=== PATIENT | male | born 1990 | race African-American/Black ===

== ENCOUNTER 2020-07-31 18:44 | Inpatient (IN) | payer MEDICAID ==
[~2020-07-31] VITALS: Ht 182.9 cm; Wt 88.0 kg
--- NOTE | 2020-07-31 19:20 | NUR ---
PT BIBSELF C/O SOB X2 DAYS AND MILD COUGH.PT AAOX4 PT DENIES FEVER, CP, AND ABD PAIN. PT WAS 80% O2 RA. NOW ON 5L VIA NC SATURATING 97% BREATHING EVENLY, BUT MILDLY LABORED. ABLE TO SPEAK IN 4 WORD SENTENCES. LUNGS SOUND CLEAR. PT HOOKED TO THE MONITOR AND POX. WILL CONTINUE TO MONITOR
[2020-07-31] MEDS ORDERED: CEFTRIAXONE 1 G in IV D5W 50 ML IV ONE ×4 (20:00)
[2020-07-31] MEDS ORDERED: DEXAMETHASONE SOD PHOSPHATE 10 MG/ML VIAL IV ONE (20:00)
[2020-07-31 20:04] LABS: BASOPHILS % (AUTO) 0.6 % (0.0-2.0); EOSINOPHILS % (AUTO) 0.8 % (0.0-6.0); HEMATOCRIT 43 % (39-51); HEMOGLOBIN 14.4 g/dL (13.5-17.5); LYMPHOCYTES # (AUTO) 1.6 /CMM (0.8-4.8); MEAN CORPUSCULAR HGB CONC 34 g/dl (31.0-36.0); MEAN CORPUSCULAR VOLUME 87 fL (80-96); MONOCYTES # (AUTO) 0.4 /CMM (0.1-1.30); NEUTROPHILS # (AUTO) 5.8 /CMM (1.8-8.9); NEUTROPHILS % (AUTO) 73.6 % (43.0-81.0); PLATELET COUNT (AUTO) 118 /CMM (150-450); RED BLOOD CELL COUNT(AUTO) 4.96 MIL/uL (4.5-6.0); WHITE BLOOD COUNT (AUTO) 7.9 K/uL (4.3-11.0)
[2020-07-31] MEDS ORDERED: CEFTRIAXONE 1GM BAG (ER ONLY) 50 ML IV ONE (20:05)
[2020-07-31] MEDS ORDERED: DEXAMETHASONE SOD PHOSPHATE 10 MG/ML VIAL ONE (20:05)
[2020-07-31 20:14] LABS: CALCIUM, SERUM 8.7 mg/dL (8.5-10.1); CARBON DIOXIDE 26 mmol/L (21-32); CHLORIDE 100 mmol/L (98-107); CREATININE 1.6 mg/dL (0.6-1.3); GLUCOSE 178 mg/dL (74-106); POTASSIUM 3.3 mmol/L (3.5-5.1); SODIUM SERUM 136 mmol/L (136-145); UREA NITROGEN, BLOOD 12 mg/dL (7-18)
[2020-07-31 20:21] LABS: ALANINE AMINOTRANSFERASE 26 U/L (12-78); ALKALINE PHOSPHATASE 62 U/L (46-116); ASPARTATE AMINOTRANSFERASE 25 U/L (15-37); BILIRUBIN,DIRECT 0.2 mg/dL (0.0-0.2); BILIRUBIN,TOTAL 0.7 mg/dL (0.2-1.0); TOTAL PROTEIN, SERUM 7.7 g/dL (6.4-8.2)
--- NOTE | 2020-07-31 20:40 | NUR ---
URINE TAKEN TO THE LAB
[2020-07-31 20:55] LABS: CREATINE KINASE, TOTAL 215 U/L (39-308); FERRITIN 200 ng/mL (8-388)
[2020-07-31 20:56] LABS: C-REACTIVE PROTEIN 1.4 mg/dL (0.0-0.9); D-DIMER 17.14 mg/L(FEU (0.17-0.50)
[2020-07-31] MEDS ORDERED: NS 0.9% IV ONE (21:00)
[2020-07-31] MEDS ORDERED: POTASSIUM CHLORIDE 20 MEQ TAB.PRT.SR PO ONE ×2 (21:00→21:31)
--- NOTE | 2020-07-31 21:06 | NUR ---
COVID SWAB TAKEN TO THE LAB
[2020-07-31] MEDS ORDERED: IOHEXOL-350 100 ML VIAL IV ONE (21:10)
[2020-07-31] MEDS ORDERED: IV NS 0.9% 250 ML IV ONE (21:10)
[2020-07-31] MEDS ORDERED: AZITHROMYCIN 500 MG in IV D5W 250 ML IV ONE (21:30)
[2020-07-31] MEDS ORDERED: AZITHROMYCIN 500 MG VIAL ONE (21:30)
[2020-07-31] MEDS ORDERED: HEPARIN INFUSION/D5W 500 ML IV PRN ×3 (21:30→22:30)
[2020-07-31] MEDS ORDERED: HEPARIN SODIUM, PORCINE 5000 UNITS/1 ML VIAL IV ONE ×2 (21:30→22:30)
--- NOTE | 2020-07-31 21:30 | NUR ---
CT AT BEDSIDE
[2020-07-31 21:42] LABS: COLOR,URINE YELLOW (YELLOW)
--- NOTE | 2020-07-31 21:42 | NUR ---
VERIFIED HEPARIN DRIP ORDERES WITH DR. SIMON, START 1000U/HR
[2020-07-31 21:43] LABS: BILIRUBIN,URINE SMALL (NEGATIVE); LEUKOCYTE ESTERASE ,URINE NEGATIVE (NEGATIVE); NITRITE, URINE NEGATIVE (NEGATIVE); PROTEIN,URINE 2+ mg/dl (NEGATIVE); UGLUCOSE NEGATIVE (NEGATIVE); UROBILINOGEN,URINE 0.2 EU/dL (0.2)
[2020-07-31 21:51] LABS: BACTERIA,URINE Few /HPF (None Seen); FINE GRANULAR CASTS,URINE Few /LPF (None Seen); RBC,URINE 0-2 /HPF (0-2); SQUAMOUS EPITHELIAL CELL,UR Few /HPF (None Seen); WBC,URINE 0-2 /HPF (0-3)
--- NOTE | 2020-07-31 21:53 | NUR ---
HEPARIN GTT STARTED
--- NOTE | 2020-07-31 22:00 | NUR ---
REC'D UPDATED TITRATION ORDERS SIGNED BY DR SIMON TO INFUSE HEPARIN 1550UNITS/HR AND GIVE A 6800 BOLUS. DIFFERENTIAL 2800UNITS BOLUS WAS GIVEN.
--- NOTE | 2020-07-31 22:03 | NUR ---
REC'D NEG COVID RESULTS FROM LAB. AWARE
[2020-07-31] MEDS ORDERED: HEPARIN SODIUM, PORCINE 5000 UNITS/1 ML VIAL ONE (22:17)
[2020-07-31] MEDS ORDERED: Z GUARD REMEDY 2 OZ OINT TP PRN (22:30)
[2020-07-31] MEDS ORDERED: ZOLPIDEM TARTRATE 5 MG TABLET PO PRN (22:30)
[2020-07-31] MEDS ORDERED: HYDROCODONE/APAP 5/325MG TABLET PO PRN (22:30)
[2020-07-31] MEDS ORDERED: MORPHINE SULFATE INJ 2 MG/ML DISP.SYRIN IV PRN (22:30)
[2020-07-31] MEDS ORDERED: MAG HYDROX/AL HYDROX/SIMETH 30 ML UDC PO PRN (22:30)
[2020-07-31] MEDS ORDERED: ACETAMINOPHEN 325 MG TABLET PO PRN (22:30)
[2020-07-31] MEDS ORDERED: ONDANSETRON HCL/PF 4 MG/2 ML VIAL IVP PRN (22:30)
[2020-07-31] MEDS ORDERED: MAGNESIUM HYDROXIDE 30 ML UDC PO PRN (22:30)
--- NOTE | 2020-07-31 23:22 | NUR ---
ATTEMPTED TO GIVE REPORT, NO ANSWER AT NURSES STATION
--- NOTE | 2020-07-31 23:29 | NUR ---
GAVE REPORT TO JEREMY ANGLIN FOR TEMITOPE
--- NOTE | 2020-07-31 23:39 | NUR ---
COVID SWAB SENT TO LAB
--- NOTE | 2020-08-01 | NUR ---
RN OPENING NOTE ADMIT 30 YEAR OLD MALE FROM ER TO [facility] ON TELE METRY MONITORING WITH DIAGNOSIS,BILATERAL PULMONARY EMBOLI SECONDARY SYNCOPE,ALERT ORIENTED X4 VERBALLY RESPONSIVE ON 5L OXYGEN VIA NASAL CANNULA,O2:100% NO SOB NOT ACUTE DISTRESS NOTED HE IS ON HEPARIN DRIP,IV SITE ARE 2 ON RIGHT AC #20 INTACT PATENT,CONTINENT TO BOWEL AND BLADDER, BED IN LOW POSITON AND LOCKED CALL LIGHT WITHIN REACH,CONTINUE TO MONITOR.
[2020-08-01 01:00] VITALS: BP 124/83
[2020-08-01] MEDS: IV NS 0.9% 1,000 ML IV PRN ×3 (02:31→19:30)
--- NOTE | 2020-08-01 04:30 | NUR ---
RN NOTE RECEIVED CRITICAL LAB RESULTS PTT IS 170 PROTOCOL HOLD HEPARIN AND CALL BÁRBARA NOTED AND CARRIED OUT.WITH NO NEW ORDER
[2020-08-01 04:39] LABS: BASOPHILS % (AUTO) 0.3 % (0.0-2.0); HEMATOCRIT 41 % (39-51); LYMPHOCYTES # (AUTO) 0.8 /CMM (0.8-4.8); LYMPHOCYTES % (AUTO) 18.4 % (20.0-44.0); MEAN CORPUSCULAR HGB CONC 34 g/dl (31.0-36.0); MEAN CORPUSCULAR VOLUME 86 fL (80-96); MONOCYTES # (AUTO) 0.1 /CMM (0.1-1.30); NEUTROPHILS # (AUTO) 3.2 /CMM (1.8-8.9); NEUTROPHILS % (AUTO) 78.3 % (43.0-81.0); PLATELET COUNT (AUTO) 124 /CMM (150-450); RED BLOOD CELL COUNT(AUTO) 4.76 MIL/uL (4.5-6.0); WHITE BLOOD COUNT (AUTO) 4.1 K/uL (4.3-11.0)
[2020-08-01 04:44] LABS: CALCIUM, SERUM 8.6 mg/dL (8.5-10.1); CREATININE 1.3 mg/dL (0.6-1.3); PHOSPHORUS 2.6 mg/dL (2.5-4.9); POTASSIUM 4.6 mmol/L (3.5-5.1)
[2020-08-01 05:00] VITALS: BP 111/73
--- NOTE | 2020-08-01 06:56 | NUR ---
RN CLOSING NOTE PATIENT REMANS ON ALERT ORIENTED X4 VERBALLY RESPONSIVE ON TELE MONITORING ON 5L OXYGEN VIA NASAL CANNULA, O2:100% NO SOB NO PAIN, HEPARIN DRIP ON HOLD,DUE TO PTT IS 170,IV SITE IS ON RIGHT AC INTACT PATIENT ON IV HYDRATION 125CC/HR,AMBULATORY, CONTINENT BOWEL AND BLADDER,KEPT CALL LIGHT WITHIN REACH,KEPT COMFORTABLE, ENDORSE NEXT COMING SHIFT FOR CONTINUATION OF CARE.
[2020-08-01] MEDS: PANTOPRAZOLE 40 MG TABLET.DR PO SCH (08:00)
--- NOTE | 2020-08-01 08:00 | NUR ---
RN OPENING NOTE RECEIVED PATIENT AWAKE AND RESTING IN BED. A&O X 3. NO COMPLAINTS OF PAIN AT THIS TIME. O2 SAT 100% ON 5L O2 VIA NC. WILL CONTINUE TO MONITOR.
[2020-08-01 09:00] VITALS: BP 115/92
[2020-08-01] MEDS: ENOXAPARIN SODIUM 100 MG/ML DISP.SYRIN SQ SCH ×2 (11:54→23:24)
[2020-08-01 13:00] VITALS: BP 135/84
[2020-08-01 17:00] VITALS: BP 139/87
--- NOTE | 2020-08-01 18:08 | NUR ---
RN CLOSING NOTE PATIENT CURRENTLY RESTING IN BED, AWAKE, WATCHING TV. A&O X 4. NO S/S RESPIRATORY DISTRESS NOTED. PATIENT STARTED ON LOVENOX BID WITH NO S/S OF ACTIVE BLEEDING NOTED. NO C/O PAIN THIS SHIFT. CONTINUES ON 5L O2 VIA NC WITH O2 SATS 100%. IV #20G TO RIGHT AC WITH NO S/S INFILTRATION OR PHLEBITIS. IV LINE PATENT WITH NS RUNNING AT 125ML/HR. TELE PATIENT WITH NSR. ASPIRATION, FALL AND SAFETY PRECAUTIONS MAINTAINED.
[2020-08-01 20:00] VITALS: BP 123/87
[2020-08-02] VITALS: BP 114/76
[2020-08-02 04:00] VITALS: BP 115/65
[2020-08-02] MEDS: IV NS 0.9% 1,000 ML IV PRN (05:46)
[2020-08-02 07:01] LABS: BASOPHILS % (AUTO) 0.6 % (0.0-2.0); EOSINOPHILS % (AUTO) 0.3 % (0.0-6.0); HEMATOCRIT 38 % (39-51); HEMOGLOBIN 12.6 g/dL (13.5-17.5); LYMPHOCYTES # (AUTO) 2.7 /CMM (0.8-4.8); MEAN CORPUSCULAR HGB CONC 34 g/dl (31.0-36.0); MEAN CORPUSCULAR VOLUME 87 fL (80-96); MONOCYTES # (AUTO) 0.5 /CMM (0.1-1.30); MONOCYTES % (AUTO) 8.4 % (2.0-12.0); NEUTROPHILS # (AUTO) 2.6 /CMM (1.8-8.9); NEUTROPHILS % (AUTO) 43.7 % (43.0-81.0); PLATELET COUNT (AUTO) 123 /CMM (150-450); RED BLOOD CELL COUNT(AUTO) 4.34 MIL/uL (4.5-6.0); WHITE BLOOD COUNT (AUTO) 5.8 K/uL (4.3-11.0)
[2020-08-02 07:10] LABS: ALBUMIN 3.1 g/dL (3.4-5.0); BILIRUBIN,TOTAL 0.6 mg/dL (0.2-1.0); CALCIUM, SERUM 8.2 mg/dL (8.5-10.1); CREATININE 1.3 mg/dL (0.6-1.3); MAGNESIUM 1.9 mg/dL (1.8-2.4); PHOSPHORUS 3.1 mg/dL (2.5-4.9); POTASSIUM 3.8 mmol/L (3.5-5.1); TOTAL PROTEIN, SERUM 6.2 g/dL (6.4-8.2)
--- NOTE | 2020-08-02 07:30 | NUR ---
PT RECEIVED RESTING COMFORTABLY IN BED. NO S/S OR C/O PAIN OR DISCOMFORT NOTED. SIDE RAILS UP X2, CALL LIGHT LEFT WITHIN REACH. WILL CONTINUE PLAN OF CARE.
[2020-08-02 08:00] VITALS: BP 129/81
[2020-08-02] MEDS: PANTOPRAZOLE 40 MG TABLET.DR PO SCH (09:30)
[2020-08-02] MEDS: ENOXAPARIN SODIUM 100 MG/ML DISP.SYRIN SQ SCH ×2 (11:48→23:17)
[2020-08-02 12:00] VITALS: BP 116/61
--- NOTE | 2020-08-02 18:30 | NUR ---
PT TRANSFERRED TO TELE-3W AFTER REPORT GIVEN TO ARI LUNA. PT TRANSFERRED VIA [facility] ON [employer]PERVISOR WITH ALL PERSONAL BELONGINGS.
--- NOTE | 2020-08-02 18:32 | NUR ---
received pt. hooked up to tele.rhythm sr rate of 73.pt. made comfortable and vs taken.call batres within reach.pt. comfortable.instructed pt. he is on bedrest.
[2020-08-02 20:47] VITALS: BP 132/71
[2020-08-03 00:30] VITALS: BP 123/79
[2020-08-03 04:00] VITALS: BP 118/75
--- NOTE | 2020-08-03 04:17 | NUR ---
RN OPENING NOTE RECEIVED PATIENT AWAKE AND RESTING IN BED. NO ACUTE DISTRESS NOTED, NO COMPLAINTS OF PAIN AT THIS TIME. , SAFETY PRECAUTIONS MAINTANIED, WILL CONTINUE TO MONITOR.
[2020-08-03 07:32] LABS: EOSINOPHILS % (AUTO) 0.8 % (0.0-6.0); HEMATOCRIT 42 % (39-51); HEMOGLOBIN 14.1 g/dL (13.5-17.5); LYMPHOCYTES # (AUTO) 1.8 /CMM (0.8-4.8); LYMPHOCYTES % (AUTO) 42.8 % (20.0-44.0); MEAN CORPUSCULAR HGB CONC 34 g/dl (31.0-36.0); MEAN CORPUSCULAR VOLUME 86 fL (80-96); MONOCYTES # (AUTO) 0.4 /CMM (0.1-1.30); MONOCYTES % (AUTO) 9.3 % (2.0-12.0); NEUTROPHILS # (AUTO) 1.9 /CMM (1.8-8.9); NEUTROPHILS % (AUTO) 46.1 % (43.0-81.0); PLATELET COUNT (AUTO) 148 /CMM (150-450); RED BLOOD CELL COUNT(AUTO) 4.85 MIL/uL (4.5-6.0); WHITE BLOOD COUNT (AUTO) 4.1 K/uL (4.3-11.0)
[2020-08-03 07:34] LABS: CALCIUM, SERUM 9.3 mg/dL (8.5-10.1); CREATININE 1.3 mg/dL (0.6-1.3); MAGNESIUM 1.9 mg/dL (1.8-2.4); PHOSPHORUS 3.9 mg/dL (2.5-4.9); POTASSIUM 4.1 mmol/L (3.5-5.1)
--- NOTE | 2020-08-03 07:59 | NUR ---
RN OPENING NOTE RECEIVED PATIENT SITTING UP IN BED. AWAKE, ALERT AND ORIENTED X 4. PATIENT IS TELE WITH NSR. CONTINUES ON ROOM AIR WITH NO S/S RESPIRATORY DISTRESS NOTED. IV #20G TO RIGHT AC INTACT AND PATENT. CALL LIGHT WITHIN REACH. WILL CONTINUE TO MONITOR.
[2020-08-03 08:00] VITALS: BP 148/85
[2020-08-03 08:07] LABS: PTH, INTACT 28 pg/mL (15-65)
[2020-08-03] MEDS: PANTOPRAZOLE 40 MG TABLET.DR PO SCH (09:03)
[2020-08-03] MEDS: APIXABAN 5 MG TABLET PO SCH ×2 (09:05→16:17)
[2020-08-03 10:13] LABS: THYROID STIMULATING HORMONE 1.256 uIU/mL (0.358-3.74)
[2020-08-03 12:00] VITALS: BP 152/77
[2020-08-03] MEDS ORDERED: APIX5TAB PO ×3 (12:46→15:19)
[2020-08-03 13:18] LABS: *SPE A/G RATIO 1.1 (0.7-1.7); *SPE ALBUMIN 3.1 g/dL (2.9-4.4); *SPE ALPHA-1-GLOBULIN 0.3 g/dL (0.0-0.4); *SPE ALPHA-2-GLOBULIN 0.6 g/dL (0.4-1.0); *SPE GLOBULIN, TOTAL 2.9 g/dL (2.2-3.9); *SPE M-SPIKE Not Observed g/dL (Not Observed)
[2020-08-03] MEDS ORDERED: APIX5TAB4 PO ×2 (15:19→15:20)
--- NOTE | 2020-08-03 17:00 | NUR ---
[place] DESIGNER NOTE PATIENT MEDICALLY CLEARED FOR DISCHARGE. PATIENT IN NO ACUTE DISTRESS. NO SOB NOTED. PATIENT BREATHING IS EVEN AND UNLABORED. PATIENT COMPLAINS OF NO PAIN. DC INSTRUCTIONS PROVIDED. PATIENT VERBALIZED UNDERSTANDING. ID BAND REMOVED. IVS REMOVED. PATIENT SIGNED BELONGINGS SHEET AND HAS BELONGINGS WITH HIM. PATIENT REFUSED SKIN ASSESSMENT. EDUCATED RISKS VS BENEFITS. PATIENT CONTINUED TO REFUSE. PATIENT KEPT CLEAN, DRY, AND COMFORTABLE THROUGHOUT SHIFT. NEEDS AND CONCERNS ADDRESSED. PATIENT AMBULATORY WITH STEADY GAIT. PATIENT GIRLFRIEND PICKED HIM UP TO GO HOME. MD AWARE OF DISCHARGE.
[2020-08-07 11:07] LABS: *THROMBIN TIME 17.1 sec (0.0-23.0); *dPT CONFIRM RATIO 1.35 Ratio (0.00-1.40); *dRVVT 50.5 sec (0.0-47.0); PROTEIN C ACTIVITY 112 % (73-180)
[2020-08-08 12:06] LABS: *FACTOR II, DNA ANALYSIS Negative (.)
== END 2020-08-03 17:00 | disposition home or self-care (01) | DRG 134 ==
LOC: ER 18:48 → TRANSITION 21:33 → TELE1 23:18 → TELE 08-02 18:18
PROVIDERS: ADMIT Nurse Practitioner Acute Care; ATTEND Registered Nurse
DX: I26.99 Other pulmonary embolism without acute cor pulmonale (principal); J96.01 Acute respiratory failure with hypoxia; I21.A1 Myocardial infarction type 2; N17.0 Acute kidney failure with tubular necrosis; E87.2 Acidosis; R55 Syncope and collapse; E87.6 Hypokalemia; R73.9 Hyperglycemia, unspecified; D68.59 Other primary thrombophilia; Z20.822 Contact with and (suspected) exposure to COVID-19; S86.00 Unspecified injury of Achilles tendon; X58.XXXD Exposure to other specified factors, subsequent encounter; D69.6 Thrombocytopenia, unspecified; D72.819 Decreased white blood cell count, unspecified; I82.431 Acute embolism and thrombosis of right popliteal vein
CPT/HCPCS: 36415; 70450-TC; 71045-TC; 80048-TC; 80053-TC; 80061-TC; 80076-TC; 81001; 81240; 81241; 82550-TC; 82728-TC; 83090; 83540-TC; 83605-TC; 83615-TC; 83735-TC; 83970; 84100-TC; 84155; 84165; 84443-TC; 84484-TC; 85025-TC; 85300; 85303; 85378-TC; 85613; 85670; 85705; 85730-TC; 85732; 86140-TC; 87040-TC; 87081-TC; 87086-TC; 93307-TC; 93970-TC; G0378; J0456; J0696; J1100; J1644; J1650; J2270; J2405; J7030; J7050; J7060; Q9967; U0003

== ENCOUNTER 2024-04-27 17:33 | Emergency (ER) | payer MEDICAID, OTHER ==
[~2024-04-27] VITALS: Ht 182.9 cm; Wt 86.2 kg
[~2024-04-27 17:33] MED LIST: APIX5TAB PO; APIX5TAB4 PO
[2024-04-27 19:16] LABS: BASOPHILS % (AUTO) 0.6 % (0.0-2.0); EOSINOPHILS % (AUTO) 1.1 % (0.0-6.0); HEMATOCRIT 44 % (39-51); HEMOGLOBIN 14.9 g/dL (13.5-17.5); MEAN CORPUSCULAR HEMOGLOBIN 30 PG (26.0-33.0); MEAN CORPUSCULAR HGB CONC 34 g/dl (31.0-36.0); MEAN CORPUSCULAR VOLUME 89 fL (80-96); MONOCYTES # (AUTO) 0.3 K/uL (0.1-1.30); MONOCYTES % (AUTO) 7.9 % (2.0-12.0); NEUTROPHILS # (AUTO) 1.6 K/uL (1.8-8.9); NEUTROPHILS % (AUTO) 40.4 % (43.0-81.0); PLATELET COUNT (AUTO) 200 K/uL (150-450); WHITE BLOOD COUNT (AUTO) 3.9 K/uL (4.3-11.0)
[2024-04-27 19:31] LABS: CALCIUM, SERUM 9.3 mg/dL (8.5-10.1); CARBON DIOXIDE 29 mmol/L (21-32); CHLORIDE 102 mmol/L (98-107); CREATININE 1.2 mg/dL (0.6-1.3); GLUCOSE 89 mg/dL (74-106); POTASSIUM 3.7 mmol/L (3.5-5.1); SODIUM SERUM 137 mmol/L (136-145); UREA NITROGEN, BLOOD 18 mg/dL (7-18)
[2024-04-27 20:25] VITALS: BP 151/85; TEMP 98.4; O2SAT 99
== END 2024-04-27 20:25 | disposition home or self-care (01) ==
LOC: ER 17:38
DX: R07.89 Other chest pain (principal); R06.02 Shortness of breath; Z86.711 Personal history of pulmonary embolism; Z79.01 Long term (current) use of anticoagulants
CPT/HCPCS: 36415; 71045-TC; 80048-TC; 84484-TC; 85025-TC; 85378-TC